=== PATIENT | female | born 1995 | race African-American/Black ===

== ENCOUNTER 2016-09-05 20:07 | Emergency (ER) | payer BC, OTHER ==
--- NOTE | 2016-09-05 21:25 | XR ---
EXAMINATION TYPE: XR shoulder complete LT DATE OF EXAM: 09/05/2016 9:20 PM COMPARISON: NONE HISTORY: Shoulder pain TECHNIQUE: 3 views FINDINGS: I see no fracture nor dislocation. Joint spaces are normal. Soft tissues appear normal. IMPRESSION: Normal left shoulder.
--- NOTE | 2016-09-05 21:26 | XR ---
EXAMINATION TYPE: XR cervical spine limited DATE OF EXAM: 09/05/2016 9:20 PM COMPARISON: NONE HISTORY: Neck pain TECHNIQUE: 3 views FINDINGS: The cervical vertebra have normal spacing and alignment. Posterior elements are intact. Yulisa antoaxial facet joint is normal. There are no cervical ribs. IMPRESSION: Normal cervical spine exam.
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
== END 2016-09-05 21:55 | disposition home or self-care (01) ==
LOC: EC 20:07
DX: S46.912A Strain of unspecified muscle, fascia and tendon at shoulder and upper arm level, left arm, initial encounter (principal); M54.6 Pain in thoracic spine; Z79.3 Long term (current) use of hormonal contraceptives; Z91.048 Other nonmedicinal substance allergy status; V48.0XXA Car driver injured in noncollision transport accident in nontraffic accident, initial encounter
CPT/HCPCS: 72020; 72040; 99284

== ENCOUNTER 2017-07-11 23:09 | Emergency (ER) | payer BC, OTHER ==
[2017-07-11 23:13] VITALS: TEMP 98.1
[2017-07-12] MEDS ORDERED: diphenhydrAMINE 50 MG CAP PO STA (00:12)
[2017-07-12] MEDS ORDERED: SULFAMETH-TMP DS STARTER PACK 2 TAB BTL PO STA (00:12)
--- NOTE | 2017-07-12 00:17 | ED ---
Skin/Abscess/FB HPI - General Chief complaint: Skin/Abscess/Foreign Body Stated complaint: poss allergic reaction Time Seen by Provider: 07/11/17 23:38 Source: patient, RN notes reviewed, old records reviewed Mode of arrival: ambulatory Limitations: no limitations - History of Present Illness Initial comments: Which is a 22-year-old female presents with three days of left middle finger swelling, and left for arm swelling. Patient reports that she think she got bit by a spider. She does not know exactly what you could've been bit by. She reports she's been taking Benadryl with some relief of the swelling and itching. She was concerned because there were some drainage coming from a spot in her form. Patient denies any Previous history of Mrsa. She denies any history of previous allergic reaction such as this. She denies any fever chills , she denies any chest pain, shortness of breath, nausea, vomiting, decreased range of motion in her hands or arms. Jennifer is any numbness or tingling. - Related Data Previous Rx's Medication Instructions Recorded Sulfamethox-Tmp 800-160Mg [Bactrim 2 tab PO Q12HR 7 Days 07/12/17 DS 800-160 mg] diphenhydrAMINE [Benadryl] 25 mg PO BID PRN #20 capsule 07/12/17 predniSONE 50 mg PO DAILY #5 tablet 07/12/17 Allergies Allergy/AdvReac Type Severity Reaction Status Date / Time mold Allergy Unknown Verified 07/11/17 23:19 tree and shrub pollen Allergy Rash/Hives Verified 07/11/17 23:19 Review of Systems ROS Statement: Those systems with pertinent positive or pertinent negative responses have been documented in the HPI. ROS Other: All systems not noted in ROS Statement are negative. Past Medical History Past Medical History: No Reported History History of Any Multi-Drug Resistant Organisms: None Reported Past Surgical History: Orthopedic Surgery Additional Past Surgical History / Comment(s): RIGHT ELBOW Past Psychological History: No Psychological Hx Reported Smoking Status: Never smoker Past Alcohol Use History: None Reported Past Drug Use History: None Reported General Exam - General Exam Comments Initial Comments: Well appearing 22 year old female, nod istress Limitations: no limitations General appearance: alert, in no apparent distress Head exam: Present: atraumatic, normocephalic, normal inspection Eye exam: Present: normal appearance, PERRL, EOMI. Absent: scleral icterus, conjunctival injection, periorbital swelling ENT exam: Present: normal exam, mucous membranes moist Neck exam: Present: normal inspection. Absent: tenderness, meningismus, lymphadenopathy Respiratory exam: Present: normal lung sounds bilaterally. Absent: respiratory distress, wheezes, rales, rhonchi, stridor Cardiovascular Exam: Present: regular rate, normal rhythm, normal heart sounds. Absent: systolic murmur, diastolic murmur, rubs, gallop, clicks GI/Abdominal exam: Present: soft, normal bowel sounds. Absent: distended, tenderness, guarding, rebound, rigid Extremities exam: Present: normal inspection, full ROM, normal capillary refill , other (right forearm has area of swelling and erythema over proximal radial aspect. Right middle finger is swollen. ). Absent: tenderness, pedal edema, joint swelling, calf tenderness Back exam: Present: normal inspection Neurological exam: Present: alert, oriented X3, CN II-XII intact Psychiatric exam: Present: normal affect, normal mood Skin exam: Present: warm, dry, intact, normal color. Absent: rash Course Vital Signs 07/11/17 07/12/17 23:10 00:27 Temperature 98.1 F Pulse Rate 89 83 Respiratory 18 16 Rate Blood Pressure 131/84 126/89 O2 Sat by Pulse 100 99 Oximetry Medical Decision Making - Medical Decision Making This is a 22 year old female with right middle finger and forearm swelling for 3 days after being bit by an insect. She does have singificant swelling, she does have some minor clear fluid drainage from forearm. I did do a culture. Patient will be placed on steriods and antibiotics for covering for allergic reaction vs. infective reaction with worsening swelling. Discussed icing the area. Discussed return parameters and if it is worsening despite antibiotics. Patient agrees to treatment plan and will comply. Disposition Clinical Impression: Swelling of finger joint of right hand, Pain and swelling of right upper extremity, Allergic reaction Disposition: HOME SELF-CARE Condition: Good Instructions: Insect Bite or Sting (ED) Additional Instructions: Patient advised to apply ice over the areas. Patient should take Benadryl, and steroids as directed. Take the antibiotic twice a day as directed. Return to emergency department if any alarming signs or symptoms occur. Prescriptions: diphenhydrAMINE [Benadryl] 25 mg PO BID PRN #20 capsule PRN Reason: Itching predniSONE 50 mg PO DAILY #5 tablet Sulfamethox-Tmp 800-160Mg [Bactrim DS 800-160 mg] 2 tab PO Q12HR 7 Days Referrals: Nonstaff,Physician [Primary Care Provider] - 1-2 days Time of Disposition: 00:14
[2017-07-12 00:28] VITALS: BP 126/89; PULSE 83; RESP 16
== END 2017-07-12 00:32 | disposition home or self-care (01) ==
LOC: EC 23:09
DX: T78.40XA Allergy, unspecified, initial encounter (principal); M25.441 Effusion, right hand; M79.601 Pain in right arm; Z91.048 Other nonmedicinal substance allergy status; Z98.890 Other specified postprocedural states
CPT/HCPCS: 87070; 87205; 99284

== ENCOUNTER 2018-12-09 13:14 | Emergency (ER) | payer BC ==
[2018-12-09 13:57] VITALS: RESP 18
--- NOTE | 2018-12-09 14:19 | XR ---
EXAMINATION TYPE: XR chest 2V DATE OF EXAM: 12/09/2018 COMPARISON: NONE HISTORY: Chest pain TECHNIQUE: Frontal and lateral views of the chest are obtained. FINDINGS: There are overlying cardiac leads. There is no focal air space opacity, pleural effusion, or pneumothorax seen. The cardiac silhouette size is within normal limits. There is a gentle spinal curvature. The osseous structures are intact. IMPRESSION: No acute cardiopulmonary process.
[2018-12-09] MEDS ORDERED: IBUPROFEN 600 MG STARTER PACK 4 TAB BTL PO STA (14:41)
--- NOTE | 2018-12-09 14:53 | ED ---
Chest Pain HPI - General Chief Complaint: Chest Pain Stated Complaint: chest pain Time Seen by Provider: 12/09/18 13:37 Source: patient, RN notes reviewed, old records reviewed Mode of arrival: ambulatory Limitations: no limitations - History of Present Illness Initial Comments: Patient is a 23-year-old female presents emergency department today for beba luation of left-sided chest pain. Symptoms started less than she sitting at home. She states that she did do some lifting yesterday moving shelves. She denies any associated shortness of breath this time. She's had intermittent chest pain like this before a few months. Patient states the pain seemed to wake her up with twisting and turning movements. She denies any associated nausea or vomiting, fevers or chills or cough. - Related Data Home Medications Medication Instructions Recorded Confirmed Aviane 1 tab PO HS 12/09/18 12/09/18 Allergies Allergy/AdvReac Type Severity Reaction Status Date / Time mold Allergy Unknown Verified 12/09/18 13:35 tree and shrub pollen Allergy Rash/Hives Verified 12/09/18 13:35 Review of Systems ROS Statement: Those systems with pertinent positive or pertinent negative responses have been documented in the HPI. ROS Other: All systems not noted in ROS Statement are negative. EKG Findings - EKG Comments: EKG Findings:: EKG performed at 03/03/1937 shows sinus rhythm with sinus arrhythmia, normal EKG. Ventricular rate of 89 bpm. Normal 120 ms. QS duration 80 ms. QT QTc is 348/423 ms. Past Medical History Past Medical History: Chest Pain / Angina History of Any Multi-Drug Resistant Organisms: None Reported Past Surgical History: Orthopedic Surgery Additional Past Surgical History / Comment(s): RIGHT ELBOW Past Psychological History: No Psychological Hx Reported Smoking Status: Never smoker Past Alcohol Use History: Occasional Past Drug Use History: None Reported General Exam - General Exam Comments Initial Comments: 23-year-old female. Alert and oriented. No distress. Limitations: no limitations General appearance: alert, in no apparent distress Head exam: Present: atraumatic, normocephalic, normal inspection Eye exam: Present: normal appearance, PERRL, EOMI. Absent: scleral icterus, conjunctival injection, periorbital swelling ENT exam: Present: normal exam, mucous membranes moist Neck exam: Present: normal inspection. Absent: tenderness, meningismus, lymphadenopathy Respiratory exam: Present: normal lung sounds bilaterally Cardiovascular Exam: Present: regular rate, normal rhythm, normal heart sounds, other (Patient's chest pain is reproducible with pectoralis flexion and range of motion of the left arm.). Absent: systolic murmur, diastolic murmur, rubs, gallop, clicks GI/Abdominal exam: Present: soft, normal bowel sounds. Absent: distended, tenderness, guarding, rebound, rigid Extremities exam: Present: normal inspection, full ROM, normal capillary refill. Absent: tenderness, pedal edema, joint swelling, calf tenderness Back exam: Present: normal inspection Neurological exam: Present: alert, oriented X3, CN II-XII intact Course Vital Signs 12/09/18 12/09/18 12/09/18 13:26 13:56 15:00 Temperature 98.3 F Pulse Rate 77 87 92 Respiratory 20 18 18 Rate Blood Pressure 153/92 137/79 136/96 O2 Sat by Pulse 100 98 99 Oximetry 12/09/18 16:04 Temperature 98.1 F Pulse Rate 93 Respiratory 18 Rate Blood Pressure 141/89 O2 Sat by Pulse 99 Oximetry Chest Pain MDM - MDM Patient is a 23 year old female presents with reproducible left sided chest wall pain, symptoms started lst night. Patient has normal eKG, chest xray, negative trop and Ddimer. Disucssed patient should talke motrin and tylenol for pain. Return parameters discussed. - PERC Rule Heart Rate < 100: (0) No No Prior History pf DVT/PE: (0) No No Recent Trauma or Surgery: (0) No Hemoptysis: (0) No No Exogenous Estrogen: (0) No No Clinical Signs Suggesting DVT: (0) No Disposition Clinical Impression: Musculoskeletal chest pain Disposition: HOME SELF-CARE Condition: Good Instructions (If sedation given, give patient instructions): Costochondritis (ED) Additional Instructions: Patient resting and take Motrin Tylenol for pain. Icing the area or apply warm compresses to help with muscle pain. Return to the emergency department if any alarming signs or symptoms occur. Follow-up with your PCP. Is patient prescribed a controlled substance at d/c from ED?: No Referrals: None,Stated [Primary Care Provider] - 1-2 days Time of Disposition: 15:50
[2018-12-09 16:07] VITALS: BP 141/89; PULSE 93; TEMP 98.1
== END 2018-12-09 16:04 | disposition home or self-care (01) ==
LOC: EC 13:14
DX: R07.89 Other chest pain (principal); Z79.3 Long term (current) use of hormonal contraceptives; Z91.048 Other nonmedicinal substance allergy status
CPT/HCPCS: 36415; 71046; 84484; 85379; 99285